=== PATIENT | male | born 1950 | race African-American/Black ===

== ENCOUNTER 2016-11-10 03:19 | Inpatient (IN) | payer SELFPAY ==
[2016-11-10] VITALS (7 sets, daily range): BP systolic 139–198; BP diastolic 62–112
[~2016-11-10] VITALS: Ht 182.9 cm; Wt 61.7 kg
[2016-11-10] MEDS ORDERED: ASPIRIN 81MG TABLET PO STA (03:25)
[2016-11-10] MEDS ORDERED: NITROGLYCERIN OINT 1GM/INCH UDPKT TD STA (03:25)
[2016-11-10] MEDS ORDERED: FUROSEMIDE 40MG/4ML VIAL IV STA (03:25)
[2016-11-10] MEDS ORDERED: ENALAPRIL 2.5MG/2ML VIAL 2ML IV STA (03:25)
[2016-11-10 03:43] LABS: BASOPHILS % 0.7 % (0.0-2.0); EOSINOPHILS % 0.7 % (0.0-5.0); HEMATOCRIT. 31.9 % (42.0-52.0); LYMPHOCYTES % 22.3 % (20.0-50.0); MEAN CORPUSCULAR HEMOGLOBIN 25.3 pg (28.0-32.0); MEAN CORPUSCULAR HGB CONC 31.4 g/dL (31.0-37.0); MEAN CORPUSCULAR VOLUME 80.6 fL (80.0-94.0); MEAN PLATELET VOLUME 7.8 fl (7.4-10.4); MONOCYTES % 6.6 % (2.0-8.0); NEUTROPHILS % 69.7 % (40.0-76.0); PLATELET 316 x1000/uL (130-400); RED BLOOD CELL COUNT 3.95 mill/uL (4.7-6.1); RED CELL DISTRIBUTION WIDTH 17.5 % (11.6-14.6); WHITE BLOOD COUNT 11.8 x1000/uL (4.5-11.0)
[2016-11-10 04:04] LABS: ALANINE AMINOTRANSFERASE 58 IU/L (13-61); ALBUMIN 3.3 g/dL (3.4-5.0); ANION GAP 15; CALCIUM 8.7 mg/dL (8.5-10.1); CARBON DIOXIDE 27 mEq/L (21-32); CHLORIDE 104 mEq/L (98-107); INDEX HEMOLYSI 1 (1-3); INDEX ICTERIC 1 (1-4); INDEX LIPEMIC 1 (1-3); LIPASE 317 IU/L (73-393); NT PRO B-TYPE NATRIURETIC PEP 7606 pg/mL (5-125); TROPONIN I 0.03 ng/mL (0.00-0.04); UREA NITROGEN BLOOD 22 mg/dL (7-21); eGFR 46 mL/min (>60)
[2016-11-10 04:14] LABS: PARTIAL THROMBOPLASTIN TIME 26.9 sec (24.0-34.0); PROTHROMBIN TIME 10.6 sec
[2016-11-10] MEDS ORDERED: HYDRALAZINE 20MG/ML VIAL IV ONE (04:30)
[2016-11-10 07:59] LABS: *AMPHETAMINES SCREEN URINE NEGATIVE (NEGATIVE); *BARBITURATES SCREEN URINE NEGATIVE (NEGATIVE); *BENZODIAZEPINES SCREEN URINE NEGATIVE (NEGATIVE); *COCAINE SCREEN URINE NEGATIVE (NEGATIVE); CANNABINOID URINE SCREEN PRESUMTIVE POSITIVE (NEGATIVE); ECSTASY MDMA SCREEN URINE NEGATIVE (NEGATIVE); METHADONE URINE SCREEN NEGATIVE (NEGATIVE); OPIATES URINE SCREEN NEGATIVE (NEGATIVE); PHENCYCLIDINE URINE SCREEN NEGATIVE (NEGATIVE)
[2016-11-10] MEDS ORDERED: LORAZEPAM 2MG/ML CPJ IV PRN (11:30)
[2016-11-10] MEDS ORDERED: NITROGLYCERIN 0.4MG TABLET SL SL PRN (11:30)
[2016-11-10] MEDS ORDERED: DIPHENHYDRAMINE 50MG/ML VIAL IV PRN (11:30)
[2016-11-10] MEDS ORDERED: ZOLPIDEM TARTRATE 5MG TABLET PO PRN (11:30)
[2016-11-10] MEDS ORDERED: ACETAMINOPHEN 325MG TABLET PO PRN (11:30)
[2016-11-10] MEDS ORDERED: ONDANSETRON HCL 4MG/2ML VIAL IV PRN (11:30)
[2016-11-10] MEDS ORDERED: TRAMADOL 50MG TABLET PO PRN (11:30)
[2016-11-10] MEDS ORDERED: DOCUSATE SODIUM 100MG CAPSULE PO PRN (11:30)
[2016-11-10] MEDS ORDERED: MAGNESIUM/ALUMINUM HYDROXIDE/SIMETHICONE 30ML UDC PO PRN (11:30)
[2016-11-10] MEDS ORDERED: NA PHOS,M-B/NA PHOS,DI-BA ENEMA 118ML PR PRN (11:30)
[2016-11-10] MEDS: CLONIDINE 0.1MG TABLET PO PRN (12:17)
[2016-11-10] MEDS: FUROSEMIDE 100MG/10ML VIAL IVP SCH (12:18)
[2016-11-10 16:16] LABS: CREATINE KINASE MB FRACTION 4.7 ng/mL (0.5-3.6)
[2016-11-10 16:24] LABS: TROPONIN I 1.9 ng/mL (0.00-0.04)
[2016-11-10] MEDS: SPIRONOLACTONE 25MG TABLET PO SCH (18:51)
[2016-11-10 19:36] LABS: INDEX HEMOLYSI 2 (1-3); INDEX ICTERIC 1 (1-4); INDEX LIPEMIC 1 (1-3); IRON 25 ug/dL (50-175); TOTAL IRON BINDING CAPACITY 415 ug/dL (250-450)
[2016-11-10] MEDS: METOPROLOL TARTRATE 25MG TABLET PO SCH (20:28)
[2016-11-10] MEDS: LISINOPRIL 20MG TABLET PO SCH (20:28)
[2016-11-10] MEDS: ENOXAPARIN 80MG/0.8ML SYR SUBCUT SCH (20:28)
[2016-11-10] MEDS ORDERED: ATORVASTATIN CALCIUM 20MG TABLET PO SCH (21:00)
[2016-11-11] VITALS (12 sets, daily range): BP systolic 122–166; BP diastolic 62–92
[2016-11-11] MEDS: FUROSEMIDE 100MG/10ML VIAL IVP SCH ×2 (00:09→11:27)
[2016-11-11 00:51] LABS: TROPONIN I 1.5 ng/mL (0.00-0.04)
[2016-11-11] MEDS: SPIRONOLACTONE 25MG TABLET PO SCH (05:06)
[2016-11-11] MEDS: AMLODIPINE 10MG TABLET PO SCH (08:46)
[2016-11-11] MEDS: PANTOPRAZOLE SODIUM 40 MG/VIAL IV SCH (08:46)
[2016-11-11] MEDS: ENOXAPARIN 80MG/0.8ML SYR SUBCUT SCH ×2 (08:46→20:55)
[2016-11-11] MEDS: LISINOPRIL 20MG TABLET PO SCH ×2 (08:46→20:55)
[2016-11-11] MEDS: METOPROLOL TARTRATE 25MG TABLET PO SCH ×2 (08:47→20:55)
[2016-11-11] MEDS ORDERED: ASPIRIN 325MG EC TABLET PO SCH (09:00)
[2016-11-11] MEDS ORDERED: ENOXAPARIN 40MG/0.4ML SYR SUBCUT SCH (09:00)
[2016-11-11] MEDS: GUAIFENESIN 200MG/10ML SUGAR FREE UDC PO PRN ×2 (11:32→20:56)
[2016-11-11 13:12] LABS: BASOPHILS % 0.6 % (0.0-2.0); DIFFERENTIAL COMMENT 0; EOSINOPHILS % 0.2 % (0.0-5.0); HEMATOCRIT. 29.7 % (42.0-52.0); HEMOGLOBIN. 9.3 g/dL (14.0-18.0); LYMPHOCYTES % 15.9 % (20.0-50.0); MEAN CORPUSCULAR HEMOGLOBIN 24.6 pg (28.0-32.0); MEAN CORPUSCULAR HGB CONC 31.1 g/dL (31.0-37.0); MEAN PLATELET VOLUME 8.4 fl (7.4-10.4); MONOCYTES % 7.3 % (2.0-8.0); PLATELET 293 x1000/uL (130-400); RED BLOOD CELL COUNT 3.77 mill/uL (4.7-6.1); WHITE BLOOD COUNT 12.3 x1000/uL (4.5-11.0)
[2016-11-11 15:14] LABS: ALANINE AMINOTRANSFERASE 38 IU/L (13-61); ALBUMIN 2.9 g/dL (3.4-5.0); ANION GAP 14; CALCIUM 8.8 mg/dL (8.5-10.1); CARBON DIOXIDE 29 mEq/L (21-32); CHLORIDE 100 mEq/L (98-107); INDEX HEMOLYSI 1 (1-3); INDEX ICTERIC 1 (1-4); INDEX LIPEMIC 1 (1-3); UREA NITROGEN BLOOD 27 mg/dL (7-21); eGFR 53 mL/min (>60)
[2016-11-11] MEDS: CLONIDINE 0.1MG TABLET PO PRN (18:29)
[2016-11-11] MEDS: FUROSEMIDE 40MG/4ML VIAL IV SCH (20:55)
[2016-11-11] MEDS: ATORVASTATIN CALCIUM 20MG TABLET PO SCH (20:55)
[2016-11-12] VITALS (12 sets, daily range): BP systolic 124–166; BP diastolic 42–88
[2016-11-12] MEDS: GUAIFENESIN 200MG/10ML SUGAR FREE UDC PO PRN ×2 (04:26→20:51)
[2016-11-12] MEDS: CLONIDINE 0.1MG TABLET PO PRN (06:13)
[2016-11-12 07:10] LABS: BASOPHILS % 0.7 % (0.0-2.0); DIFFERENTIAL COMMENT 0; EOSINOPHILS % 0.6 % (0.0-5.0); HEMATOCRIT. 29.5 % (42.0-52.0); HEMOGLOBIN. 9.2 g/dL (14.0-18.0); LYMPHOCYTES % 24.7 % (20.0-50.0); MEAN CORPUSCULAR HEMOGLOBIN 24.6 pg (28.0-32.0); MEAN CORPUSCULAR HGB CONC 31.3 g/dL (31.0-37.0); MEAN CORPUSCULAR VOLUME 78.4 fL (80.0-94.0); MEAN PLATELET VOLUME 8.4 fl (7.4-10.4); MONOCYTES % 9.5 % (2.0-8.0); NEUTROPHILS % 64.5 % (40.0-76.0); PLATELET 309 x1000/uL (130-400); RED BLOOD CELL COUNT 3.76 mill/uL (4.7-6.1); RED CELL DISTRIBUTION WIDTH 16.7 % (11.6-14.6); WHITE BLOOD COUNT 10.7 x1000/uL (4.5-11.0)
[2016-11-12 08:11] LABS: CALCIUM 9.1 mg/dL (8.5-10.1); MAGNESIUM 2.2 mg/dL (1.8-2.4)
[2016-11-12] MEDS: IPRATROPIUM/ALBUTEROL 0.5-3(2.5)MG/3ML NEB INH PRN ×3 (08:48→20:10)
[2016-11-12] MEDS: PANTOPRAZOLE SODIUM 40 MG/VIAL IV SCH (09:41)
[2016-11-12] MEDS: METOPROLOL TARTRATE 25MG TABLET PO SCH ×3 (09:42→20:52)
[2016-11-12] MEDS: ENOXAPARIN 40MG/0.4ML SYR SUBCUT SCH (09:42)
[2016-11-12] MEDS: FUROSEMIDE 40MG/4ML VIAL IV SCH ×2 (09:42→20:51)
[2016-11-12] MEDS: ASPIRIN 81MG TABLET PO SCH (09:42)
[2016-11-12] MEDS: AMLODIPINE 10MG TABLET PO SCH (09:43)
[2016-11-12] MEDS: LISINOPRIL 20MG TABLET PO SCH ×2 (09:43→20:52)
[2016-11-12] MEDS: LEVOFLOXACIN 250MG PREMIX 50 ML IV SCH (10:46)
[2016-11-12] MEDS: HYDRALAZINE HCL 50MG TABLET PO SCH ×2 (13:47→21:46)
[2016-11-12] MEDS: SILDENAFIL CITRATE 20MG TABLET PO SCH ×2 (13:47→21:46)
[2016-11-12] MEDS ORDERED: HYDRALAZINE HCL 25MG TABLET PO SCH (14:00)
[2016-11-12] MEDS: ATORVASTATIN CALCIUM 20MG TABLET PO SCH (20:51)
[2016-11-13] VITALS (11 sets, daily range): BP systolic 113–170; BP diastolic 59–105
[2016-11-13] MEDS: IPRATROPIUM/ALBUTEROL 0.5-3(2.5)MG/3ML NEB INH PRN ×2 (00:19→04:34)
[2016-11-13] MEDS: GUAIFENESIN 200MG/10ML SUGAR FREE UDC PO PRN ×2 (02:30→08:44)
[2016-11-13 05:39] LABS: BASOPHILS % 0.6 % (0.0-2.0); DIFFERENTIAL COMMENT 0; EOSINOPHILS % 0.5 % (0.0-5.0); HEMATOCRIT. 31.1 % (42.0-52.0); LYMPHOCYTES % 21.8 % (20.0-50.0); MEAN CORPUSCULAR HEMOGLOBIN 25.1 pg (28.0-32.0); MEAN CORPUSCULAR HGB CONC 32.2 g/dL (31.0-37.0); MEAN CORPUSCULAR VOLUME 78.2 fL (80.0-94.0); MEAN PLATELET VOLUME 7.9 fl (7.4-10.4); MONOCYTES % 8.4 % (2.0-8.0); NEUTROPHILS % 68.7 % (40.0-76.0); PLATELET 358 x1000/uL (130-400); RED BLOOD CELL COUNT 3.98 mill/uL (4.7-6.1); RED CELL DISTRIBUTION WIDTH 16.8 % (11.6-14.6); WHITE BLOOD COUNT 10.1 x1000/uL (4.5-11.0)
[2016-11-13 05:44] LABS: CALCIUM 9.3 mg/dL (8.5-10.1); MAGNESIUM 2.2 mg/dL (1.8-2.4)
[2016-11-13] MEDS: HYDRALAZINE HCL 50MG TABLET PO SCH ×2 (05:44→14:16)
[2016-11-13] MEDS: SILDENAFIL CITRATE 20MG TABLET PO SCH ×2 (05:45→14:16)
[2016-11-13] MEDS ORDERED: REGADENOSON 0.4 MG/5 ML IV ONE ×2 (08:00→12:23)
[2016-11-13] MEDS: METOPROLOL TARTRATE 25MG TABLET PO SCH (08:34)
[2016-11-13] MEDS: FUROSEMIDE 40MG/4ML VIAL IV SCH (08:44)
[2016-11-13] MEDS: ASPIRIN 81MG TABLET PO SCH (08:45)
[2016-11-13] MEDS: ENOXAPARIN 40MG/0.4ML SYR SUBCUT SCH (08:45)
[2016-11-13] MEDS: LISINOPRIL 20MG TABLET PO SCH (08:46)
[2016-11-13] MEDS: AMLODIPINE 10MG TABLET PO SCH (08:46)
[2016-11-13] MEDS ORDERED: FAMOTIDINE 20MG/2ML VIAL IV SCH (09:00)
[2016-11-13] MEDS: LEVOFLOXACIN 250MG PREMIX 50 ML IV SCH (10:34)
[2016-11-13] MEDS ORDERED: PNEUMOCOCCAL 23-VAL P-SAC VAC 0.5 ML IM ONE (20:00)
== END 2016-11-13 18:40 | disposition home or self-care (01) | DRG 190 ==
LOC: ER 03:22 → 5EST 04:48
PROVIDERS: ADMIT Internal Medicine; ATTEND Internal Medicine
PROC: 5A09357 Assistance with Respiratory Ventilation, Less than 24 Consecutive Hours, Continuous Positive Airway Pressure (ICD-10-PCS; principal; 2016-11-10)
DX: I21.4 Non-ST elevation (NSTEMI) myocardial infarction (principal); J96.00 Acute respiratory failure, unspecified whether with hypoxia or hypercapnia; N17.9 Acute kidney failure, unspecified; I50.43 Acute on chronic combined systolic (congestive) and diastolic (congestive) heart failure; E44.0 Moderate protein-calorie malnutrition; I27.2 Other secondary pulmonary hypertension; I13.0 Hypertensive heart and chronic kidney disease with heart failure and stage 1 through stage 4 chronic kidney disease, or unspecified chronic kidney disease; J44.9 Chronic obstructive pulmonary disease, unspecified; E78.00 Pure hypercholesterolemia, unspecified; N18.9 Chronic kidney disease, unspecified; E78.5 Hyperlipidemia, unspecified; F17.210 Nicotine dependence, cigarettes, uncomplicated; D72.829 Elevated white blood cell count, unspecified; I34.0 Nonrheumatic mitral (valve) insufficiency; D63.8 Anemia in other chronic diseases classified elsewhere; Z68.1 Body mass index [BMI] 19.9 or less, adult; Z91.14 Patient's other noncompliance with medication regimen; Z79.899 Other long term (current) drug therapy; Z82.49 Family history of ischemic heart disease and other diseases of the circulatory system; Z79.82 Long term (current) use of aspirin
CPT/HCPCS: 36415; 71010; 78452; 78582; 80048; 80053; 80061; 80305; 82550; 82553; 82607; 82746; 82962; 83036; 83540; 83550; 83690; 83735; 83880; 84484; 85025; 85610; 85730; 90732; 93005; 93017; 93306; 93970; 94640; 94660; 96374; 96375; 99291; A9500; A9558; C9113; J0360; J1650; J1940; J1956; J2785; J3490; J7050; J7620